=== PATIENT | male | born 1980 | race Caucasian/White ===

== ENCOUNTER 2019-03-17 22:52 | Emergency (ER) | payer SELFPAY ==
--- NOTE | 2019-03-17 23:17 | ER Document Report ---
ED Medical Screen (RME) - General Chief Complaint: ETOH Abuse Stated Complaint: [facility] RE[facility] Time Seen by Provider: 03/17/19 23:06 - HPI Notes: 03/17/19 23:32 38-year-old male to the emergency department for clearance for referral to [facility] for alcohol abuse. States that he has been drinking for about 10 years and recently is gotten more out of control. He states that he has drunk about half a box of black box Chardonnay today. States he drinks every day. States he is in AA and has a sponsor but he continues to drink. He states that he was recently released from retirement about 2 months ago. He is taking care of both his uncle and his mother who are both failing in their health. He states that it is a lot for him so he drinks to help cope. He denies any current SI or HI. He denies any hallucinations. I performed a brief medical screening exam on patient and have placed initial orders to help expedite the patient's treatment plan. We will have main side ER provider further evaluate and disposition patient. Physical Exam - Vital signs Vitals: Temp Pulse Resp BP Pulse Ox 99.1 F 107 H 19 120/72 96 03/17/19 23:01 03/17/19 23:01 03/17/19 23:01 03/17/19 23:01 03/17/19 23:01 Course - Vital Signs Vital signs: Temp Pulse Resp BP Pulse Ox 99.1 F 107 H 19 120/72 96 03/17/19 23:01 03/17/19 23:01 03/17/19 23:01 03/17/19 23:01 03/17/19 23:01
[2019-03-17] MEDS ORDERED: LORAZEPAM INJ 2 MG/1 ML VIAL IM ONE ×2 (23:54→23:59)
--- NOTE | 2019-03-18 | ER Document Report ---
ED General - General Chief Complaint: ETOH Abuse Stated Complaint: [facility] Time Seen by Provider: 03/17/19 23:06 - HPI Notes: 38-year-old male presenting with a chief complaint of "alcohol problems". This gentleman has had several prior detox admissions. He says that he is currently under tremendous amount of stress living with his mother and his uncle both of whom have serious medical problems. Uncle is being treated for terminal cancer and is on hospice care. The patient says he has previously been incarcerated and is currently out on parole. He says he has been drinking a "whole box" of wine daily. He has a past history of heroin abuse but says he has been abstinent from injecting heroin since he was paroled from long term. He denies any use of marijuana. He comes [facility] ostensibly seeking "help" for alcoholism. He has consumed alcohol within the last 1 hour. Here he is denying suicidal or homicidal ideation but he was referred here by mental health clinic after he allegedly threatened to take a lethal overdose of heroin. Allegations have also been raised that this man may be diverting opiates intended for his uncle. Patient denies this. He denies hallucinations at this time. Past Medical History - General Information source: Patient - Social History Smoking Status: Current Every Day Smoker Frequency of alcohol use: Heavy Drug Abuse: None Family History: Reviewed & Not Pertinent Patient has suicidal ideation: Yes Patient has homicidal ideation: No Psychiatric Medical History: Reports: Hx Bipolar Disorder, Other - History of p olysubstance abuse Surgical Hx: Negative Review of Systems - Review of Systems Notes: Constitutional: Negative for fever. HENT: Negative for sore throat. Eyes: Negative for visual changes. Cardiovascular: Negative for chest pain. Respiratory: Negative for shortness of breath. Gastrointestinal: Negative for abdominal pain, vomiting or diarrhea. Genitourinary: Negative for dysuria. Musculoskeletal: Negative for back pain. Skin: Negative for rash. Neurological: Negative for headaches, weakness or numbness. 10 point ROS negative except as marked above and in HPI. Physical Exam - Vital signs Vitals: Temp Pulse Resp BP Pulse Ox 99.1 F 107 H 19 120/72 96 03/17/19 23:01 03/17/19 23:01 03/17/19 23:01 03/17/19 23:01 03/17/19 23:01 Notes: GENERAL: Patient is boisterous and belligerent with strong odor of alcohol his breath and slurred speech. He is yelling intermittently and has threatened multiple staff members verbally. SKIN: Slightly flushed with good turgor no rashes. HEAD: Normocephalic atraumatic. EYES: PERRLA. Conjunctivae and sclerae clear. EARS: CANALS AND TMS CLEAR. NOSE: CLEAR. MOUTH: Moist mucosa. No stridor or edema. No drooling. NECK: Supple. No masses or thyromegaly. No adenopathy. Carotids 2+ without bruits. No JVD. BACK: Symmetrical without tenderness. CHEST: Respirations unlabored. Breath sounds clear and symmetrical. HEART: Regular rhythm. No murmur gallop or rub. ABDOMEN: Soft nontender without masses, organomegaly or rebound. Bowel sounds normally active. No bruits. GENITALIA: Deferred. EXTREMITIES: No edema. No calf tenderness. Cap refill less than 1.5 seconds. Dorsalis pedis and posterior tibial pulses 3+ and symmetrical. NEUROLOGICAL: GCS 15. Alert and oriented x3. Ataxic gait. Slurred speech. Cranial nerves II through XII intact. Sensory and motor normal. Normal tone. Course - Re-evaluation Re-evalutation: 03/18/19 01:26 Patient is threatening staff and clearly has made suicide threats prior to arrival here although he is quite intoxicated with a markedly elevated blood alcohol. I have placed him under involuntary commitment at this time. Patient has been medicated with Haldol and Ativan due to aggressive belligerent behavior . 03/18/19 01:30 Further care will be turned over to Dr. Rashaun Hernandez at this time. - Vital Signs Vital signs: Temp Pulse Resp BP Pulse Ox 99.1 F 107 H 19 120/72 96 03/17/19 23:01 03/17/19 23:01 03/17/19 23:01 03/17/19 23:01 03/17/19 23:01 - Laboratory Result Diagrams: 03/18/19 00:28 03/18/19 00:28 Laboratory results interpreted by me: 03/18/19 03/18/19 00:28 00:28 RDW 15.6 H Seg Neuts % (Manual) 37 L Lymphocytes % (Manual) 53 H Sodium 149.9 H Chloride 109 H AST 171 H Total Protein 8.5 H Serum Alcohol 391 H* Discharge - Discharge Clinical Impression: Suicidal ideations, Bipolar affective disorder Acute alcohol intoxication Qualifiers: Complication of substance-induced condition: with unspecified complication Qualified Code(s): F10.929 - Alcohol use, unspecified with intoxication, unspecified Disposition: PSYCH HOSP/UNIT Admitting Provider: Giovani Ervin
[2019-03-18] MEDS ORDERED: HALOPERIDOL LACTATE INJ 5 MG/1 ML VIAL IM ONE ×2 (00:04→01:16)
[2019-03-18 00:47] LABS: HEMATOCRIT 42.5 % (37.9-51.0); HEMOGLOBIN 14.4 g/dL (13.5-17.0); MEAN CORPUSCULAR HGB CONC 33.8 g/dL (32.0-36.0); MEAN CORPUSCULAR VOLUME 95 fl (80-97); PLATELET COUNT 246 10^3/uL (150-450); RED CELL DISTRIBUTION WIDTH 15.6 % (11.5-14.0); WHITE BLOOD COUNT 4.7 10^3/uL (4.0-10.5)
[2019-03-18 00:52] LABS: ALKALINE PHOSPHATASE 117 U/L (38-126); ANION GAP 18 (5-19); ASPARTATE AMINO TRANSFERASE 171 U/L (17-59); BILIRUBIN,DIRECT 0.2 mg/dL (0.0-0.4); BILIRUBIN,TOTAL 0.4 mg/dL (0.2-1.3); BLOOD UREA NITROGEN 9 mg/dL (7-20); CALCIUM 9.2 mg/dL (8.4-10.2); CARBON DIOXIDE 23 mmol/L (22-30); CHLORIDE 109 mmol/L (98-107); GLUCOSE 87 mg/dL (75-110); POTASSIUM 4.3 mmol/L (3.6-5.0); TOTAL PROTEIN 8.5 g/dL (6.3-8.2)
[2019-03-18 01:03] LABS: ALCOHOL 391 mg/dL (NONE DETECTED)
[2019-03-18 01:09] LABS: ABSOLUTE LYMPHOCYTES# (MANUAL) 2.7 10^3/uL (0.5-4.7); ABSOLUTE MONOCYTES # (MANUAL) 0.2 10^3/uL (0.1-1.4); BASOPHILS % (MANUAL) 0 % (0-2); EOSINOPHILS % (MANUAL) 1 % (0-6); LYMPHOCYTES % (MANUAL) 53 % (13-45); MONOCYTES % (MANUAL) 4 % (3-13); SEGMENTED NEUTROPHILS % (MAN) 37 % (42-78); TOTAL CELLS COUNTED 100
[2019-03-18 01:10] LABS: ANISOCYTOSIS 1+; PLATELET COMMENT ADEQUATE
[2019-03-18] MEDS ORDERED: LORAZEPAM INJ 2 MG/1 ML VIAL IM ONE ×2 (01:14→16:04)
[2019-03-18] MEDS ORDERED: LORAZEPAM INJ 2 MG/1 ML VIAL ONE (01:15)
[2019-03-18 01:34] LABS: URINE AMPHETAMINES SCREEN NEGATIVE; URINE BARBITURATES SCREEN NEGATIVE; URINE BENZODIAZEPINES SCREEN NEGATIVE; URINE COCAINE SCREEN NEGATIVE; URINE MARIJUANA (THC) SCREEN NEGATIVE; URINE METHADONE SCREEN NEGATIVE; URINE PHENCYCLIDINE SCREEN NEGATIVE
--- NOTE | 2019-03-18 13:27 | PSYCHOLOGICAL NOTE ---
Psych Note - Psych Note Date seen by psych provider: 03/18/19 Time seen by psych provider: 13:15 Psych Note: Reason for consult: Alcohol Abuse Patient presents to ED as a consult for placement at [facility]. Patients blood alcohol content (391) was above the minimum for [facility] to accept. Patient reported being tired. Patient denied current event was a suicide attempt. Patient is alert and oriented to person, place, time and circumstance. Mood is normal with congruent affect as evidenced by appropriate engagement with clinician. Patient denies suicidal and homicidal ideations. Delusions are absent and behavior is congruent with an intact reality based presentation (i.e. organized and linear thought processes). Patient denies auditory and visual hallucinations. There is no observed behavior that suggests patient is responding to internal stimuli. Eye contact is fair. Conversational speech is within normal rate, tone, and prosody. Intellectual ability appears to be within average range. Attention and concentration are fair. Insight, judgment, and impulse control are fair. DSM Diagnosis: Alcohol Use Disorder Medication recommendations per [facility] contracted psychiatrist Dr. Buster GRAJEDA is as follows: None Impression/Plan: Patient is cleared from acute psychiatric services. Patient does not meet IVC criteria per CT GS 122C. Patient has voluntarily elected to seek treatment at [facility] when his blood alcohol level is below 100, which is the requirement from [facility]. Dr. Ervin was consulted on the care and management of this patient; attending physician is in agreement with recommendations and disposition.
[2019-03-18] MEDS ORDERED: ONDANSETRON 4 MG TAB.RAPDIS PO ONE (14:24)
--- NOTE | 2019-03-18 14:29 | ER Document Report ---
Doctor's Note Notes: 03/18/19 13:50 PHYSICAL EXAMINATION: GENERAL: Sleeping, arouses easily to voice well-appearing and in no acute distress. HEAD: Atraumatic, normocephalic. EYES: sclera anicteric, conjunctiva are normal. ENT: nares patent. Moist mucous membranes. NECK: Normal range of motion, supple without lymphadenopathy LUNGS: CTAB and equal. No wheezes rales or rhonchi. HEART: Regular rate and rhythm without murmurs ABDOMEN: Soft, nontender, normal bowel sounds, no guarding. EXTREMITIES: Normal range of motion. No cyanosis. BACK: No midline tenderness, no step-off or deformity. No CVA tenderness NEUROLOGICAL: Cranial nerves grossly intact. Normal speech. No tremor noted PSYCH: Normal mood, normal affect. SKIN: Warm, Dry, normal turgor, no rashes or lesions noted Patient sleeping, arouses easily to voice. Patient denies complaints at present. Reviewed patient's diagnostic evaluation. Patient appears clinically stable for transfer at this time. Mental health team states that patient is pending transfer to [facility] for detox. They request the patient's blood alcohol level be less than 100. 03/18/19 16:00 Patient blood alcohol level less than 100 at this time. Patient stable for transfer to [facility]. Their transfer crew will be here to get patient directly.
[2019-03-18 16:39] VITALS: BP 125/69
--- NOTE | 2019-03-19 22:08 | EKG REPORT ---
SEVERITY:- NORMAL ECG - SINUS RHYTHM : Confirmed by: Melissa Howell 19-Mar-2019 22:07:34
== END 2019-03-18 16:45 | disposition home or self-care (01) ==
LOC: ER 22:52
DX: F10.129 Alcohol abuse with intoxication, unspecified (principal); R45.851 Suicidal ideations; F31.9 Bipolar disorder, unspecified; F17.200 Nicotine dependence, unspecified, uncomplicated
CPT/HCPCS: 93005; 36415; 80307 ×2; 85025; 80053; 93010; S0119; J1630; J2060; 96374; 96375; 96376; 99285